=== PATIENT | female | born 1945 | race Caucasian/White ===

== ENCOUNTER → 2020-09-16 | Outpatient (CLI) | payer OTHER ==
[~2020-09-16] MED LIST: ANORO ELLIPTA1 EACH INH; APAP650 PO; ASPIRIN81 M2 PO; COLACE100 MG PO; DIPHENHYDRAMINE25 M4 PO; GLYCOLAX POWDER17 G1 PO; HYDROCODON-ACE1 EAC7 PO; HYDROCODON-ACE1 EAC8 PO; IMURAN 50MG TAB50 M1 PO; LESCOL40 MG PO; LIPITOR40 MG PO; LOPRESSOR50 MG PO; METFORMIN HCL500 M3 PO; OMEPRAZOLE20 M2 PO; ORENCIA125 MG/1 M SUBQ; PAXIL40 MG; PAXIL40 MG PO; RITALIN10 MG PO; SINGULAIR 10 MG10 MG PO
== END ==
LOC: M.PC 11:45
PROVIDERS: ATTEND Anesthesiology Pain Medicine
DX: M47.22 Other spondylosis with radiculopathy, cervical region (principal); E11.65 Type 2 diabetes mellitus with hyperglycemia; J43.1 Panlobular emphysema; J45.40 Moderate persistent asthma, uncomplicated; M35.00 Sjogren syndrome, unspecified; E78.00 Pure hypercholesterolemia, unspecified; M32.9 Systemic lupus erythematosus, unspecified; Z79.891 Long term (current) use of opiate analgesic; Z79.899 Other long term (current) drug therapy; Z90.710 Acquired absence of both cervix and uterus

== ENCOUNTER → 2020-09-18 | Outpatient (CLI) | payer OTHER | END | disposition home or self-care (01) | LOC: M.PC 10:40 | PROVIDERS: ATTEND Anesthesiology Pain Medicine | DX: M47.22 Other spondylosis with radiculopathy, cervical region (principal); G89.29 Other chronic pain; E11.65 Type 2 diabetes mellitus with hyperglycemia; J43.1 Panlobular emphysema; M06.9 Rheumatoid arthritis, unspecified; Z79.4 Long term (current) use of insulin; E78.00 Pure hypercholesterolemia, unspecified; Z98.890 Other specified postprocedural states; Z79.899 Other long term (current) drug therapy; Z90.710 Acquired absence of both cervix and uterus; Z90.49 Acquired absence of other specified parts of digestive tract ==

== ENCOUNTER → 2020-12-11 | Outpatient (CLI) | payer OTHER ==
[~2020-12-11] MED LIST changes: +BACLOFEN 10MG T10 MG PO; +ELIQUIS5 M1 PO; +ELIQUIS5 MG PO; +FLORASTOR250 MG PO; -GLYCOLAX POWDER17 G1 PO; +MEDROL DOSPAK21 TA1 PO; +MIRALAX17 GM PO; +OMEPRAZOLE 20 M20 M1 PO; +ROXICODONE5 M2 PO; +SLOW FE142 MG PO
== END ==
LOC: M.PC 12-09 10:20
PROVIDERS: ATTEND Anesthesiology Pain Medicine
DX: M54.12 Radiculopathy, cervical region (principal); L08.9 Local infection of the skin and subcutaneous tissue, unspecified; E11.9 Type 2 diabetes mellitus without complications; J43.1 Panlobular emphysema; J45.909 Unspecified asthma, uncomplicated; M60.9 Myositis, unspecified; M35.00 Sjogren syndrome, unspecified

== ENCOUNTER → 2021-02-10 | Outpatient (CLI) | payer OTHER ==
[~2021-02-10] MED LIST changes: +PERCOCET 7.5-31 EAC1 PO
== END ==
LOC: M.PC 10:37
PROVIDERS: ATTEND Anesthesiology Pain Medicine
DX: G89.29 Other chronic pain (principal); M47.22 Other spondylosis with radiculopathy, cervical region; E11.649 Type 2 diabetes mellitus with hypoglycemia without coma; J43.1 Panlobular emphysema; J45.909 Unspecified asthma, uncomplicated; M06.8A Other specified rheumatoid arthritis, other specified site; Z87.891 Personal history of nicotine dependence; Z88.8 Allergy status to other drugs, medicaments and biological substances; Z79.899 Other long term (current) drug therapy

== ENCOUNTER → 2021-03-10 | Outpatient (CLI) | payer OTHER | LOC: M.PC 11:04 | PROVIDERS: ATTEND Anesthesiology Pain Medicine | DX: M47.22 Other spondylosis with radiculopathy, cervical region (principal); M54.2 Cervicalgia; E11.9 Type 2 diabetes mellitus without complications; J43.1 Panlobular emphysema; J45.40 Moderate persistent asthma, uncomplicated; K11.20 Sialoadenitis, unspecified; Z79.899 Other long term (current) drug therapy; Z87.891 Personal history of nicotine dependence ==